=== PATIENT | female | born 1960 | race Caucasian/White ===

== ENCOUNTER 2025-03-07 13:35 | Observation (INO) | payer OTHER, SELFPAY ==
[2025-03-07] VITALS (13 sets, daily range): BP systolic 129–186; BP diastolic 77–101; PULSE 72–115; RESP 13–22; TEMP 36.3–36.8; O2SAT 98–100; BMI 21.3; BMI 20.6
--- NOTE | 2025-03-07 13:46 | CT_ITS ---
PROCEDURE: STROKE CTA HEAD AND NECK W/CON 03/07/2025 REASON FOR EXAM: NEURO DEFICIT, ACUTE, STROKE SUSPECTED TECHNIQUE: Procedure Code: CHARLINE Modality: CT Procedure: STROKE CTA HEAD AND NECK W/CON Multiplanar Sagittal and Coronal images were obtained. 3D post processing was performed CONTRAST: Isovue 370 VOLUME: 100 mL One or more dose reduction techniques were used (e.g., Automated exposure control, adjustment of the mA and/or kV according to patient size, use of iterative reconstruction technique). RADIATION DOSE SUMMARY: CTDlvol: 32.23 mGy DLP: 562.9 mGycm COMPARISON: None FINDINGS: Aortic Arch: No aneurysm or dissection Brachiocephalic and Subclavians: Unremarkable RIGHT Carotid: Right CCA: Unremarkable. Right ICA: Unremarkable. Maximum stenosis (NASCET): 0 % Right ECA: Unremarkable. LEFT Carotid: Left CCA: Unremarkable. Left ICA: Unremarkable. Maximum stenosis (NASCET): 0 % Left ECA: Unremarkable. Vertebrals: Codominant. Arise from the subclavians. Both vertebrals form the basilar. RIGHT Vertebral: Unremarkable. LEFT Vertebral: Unremarkable. 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 Anterior cerebral arteries: Unremarkable: Middle cerebral arteries: Unremarkable. Basilar artery: Unremarkable. Posterior cerebral arteries: Unremarkable. Other major branches of the posterior circulation: Unremarkable. Major venous structures: Unremarkable. Other findings: No suspicious enhancing lesion, airway narrowing or deviation. Bony structures show degenerative change, bilateral maxillary sinusitis, thyroid gland is unremarkable. 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 No aneurysm or vascular malformation Patent vertebral arteries Reading Location: [id number]
--- NOTE | 2025-03-07 13:46 | RAD_ITS ---
PROCEDURE: CHEST 1 VIEW 03/07/2025 REASON FOR EXAM: NEURO DEFICIT, ACUTE, STROKE SUSPECTED TECHNIQUE: Frontal view of the chest. COMPARISON: None. FINDINGS: LUNGS AND PLEURA: No focal airspace consolidation. No pleural effusion or pneumothorax. HEART AND MEDIASTINUM: The heart size and mediastinal contours are normal. BONES: No acute osseous abnormality. RAD/Chest 1 View IMPRESSION: No Acute Findings. Reading Location: [id number]
--- NOTE | 2025-03-07 13:46 | CT_ITS ---
PROCEDURE: STROKE BRAIN/HEAD WITHOUT CONT 03/07/2025 REASON FOR EXAM: NEURO DEFICIT, ACUTE, STROKE SUSPECTED TECHNIQUE: Procedure Code: CTBR.ST Modality: CT Procedure: STROKE BRAIN/HEAD WITHOUT CONT Coronal and Sagittal reconstruction series were provided. One or more dose reduction techniques were used (e.g., Automated exposure control, adjustment of the mA and/or kV according to patient size, use of iterative reconstruction technique. RADIATION DOSE SUMMARY: CTDlvol: 45 mGy DLP: 745.5 mGycm COMPARISON: None FINDINGS: Cerebrum: Mild loss ofcerebral volume. Negative for mass the frontal, parietal, temporal and occipital lobes otherwisenegative. White matter: Negative for periventricular white matter changes. Cerebellum: Negative. Negative for mass. Negative for acute infarction. CSF pathways and ventricles: Negative. Negative for ventricular dilatation or obstruction. Basal ganglia and thalami: Negative. No acute infarctions. Brainstem: Midbrain, jose and medulla negative. Calvarium: Negative. Negative for fractures. Orbital structures: Globes negative. Extraocular muscles negative. Paranasal sinuses: Air-fluid levels in the maxillary sinuses. Remainder of the sinuses negative. Vascular structures: Negative for calcifications of the distal intracranial internal carotid arteries. Soft tissues: Negative. Other: : Negative for acute intracranial hemorrhage. Negative for acute infarction. Remainder of exam negative. CT/STROKE Brain/Head without Cont IMPRESSION: Negative for acute intracranial pathology. Maxillary sinusitis. Report called to referring clinician at the time of the exam. Reading Location: [id number]
--- NOTE | 2025-03-07 13:46 | EKG12_ITS ---
Test Reason : STROKE Blood Pressure : */* mmHG Vent. Rate : 92 BPM Atrial Rate : 92 BPM P-R Int : 148 ms QRS Dur : 64 ms QT Int : 350 ms P-R-T Axes : 80 76 61 degrees QTcB Int : 432 ms Sinus rhythm with marked sinus arrhythmia Otherwise normal ECG Confirmed by Joao Hyman ([id number]), electronic news gathering editor BRENT ROBERTS ([id number]) on 03/08/2025 1:25:59 PM Referred By: Confirmed By: Joao Hyman
--- NOTE | 2025-03-07 13:47 | ED.VIS.STROK ---
HPI History of Present Illness Chief Complaint: Weakness Informant: patient Onset/Context/Timing Onset: Today Context: Sudden Onset Timing: Continuous Quality and Location: Positive for Difficulty with Ambulation Onset: Approximately 8 AM Worsened by: Nothing Relieved by: Nothing Associated Symptoms Associated Symptoms: Positive for Headache; Negative for Nausea, Vomiting or Chest Pain Narrative Narrative: Patient presents with headache, tinnitus, and dizziness. Patient states the headache is mainly over the right side of her head. Patient states the headache began when she woke up this morning. Patient states that after that she started noticing some ringing and buzzing in her right ear. Patient went to [facility]. While she was at [facility], she had feeling where she was going to fall and was off balance. Patient denies any paresthesias or weakness. Patient denies any difficulty breathing or difficulty swallowing. Patient denies any visual changes. [facility] Medical History Fatty tumor Home Medications ?Medication ?Instructions ?Recorded ?Last Taken ?Type alprazolam 0.5 mg tablet 0.25 mg PO QHS PRN sleep 03/07/25 Unknown History ascorbic acid (vitamin C) 1,000 mg 1 g PO DAILY 03/07/25 Unknown History tablet (C-1000) bisacodyl 5 mg tablet,delayed 5 mg PO PRN CONSTIPATION 03/07/25 Unknown History release (Dulcolax (bisacodyl)) capsicum (cayenne) 450 mg capsule 450 mg PO DAILY 03/07/25 Unknown History coenzyme Q10 100 mg capsule (Co 100 mg PO DAILY 03/07/25 Unknown History Q-10) fluoxetine 20 mg capsule 20 mg PO QODAY 03/07/25 03/07/25 History hawthorn 500 mg capsule (hawthorn 500 mg PO DAILY 03/07/25 Unknown History rasheed) Allergy/AdvReac Type Severity Reaction Status Date / Time No Known Allergies Allergy Verified 03/07/25 13:42 Social History Smoking Status: Never smoker ROS ROS ED Constitutional Constitutional ED: Denies chills or fever(s) Eyes Eyes: Denies blurry vision or change in vision ENT ENT ED: Denies rhinorrhea or sore throat Cardiovascular Cardiovascular: Denies chest pain or palpitations Respiratory/Chest Respiratory/Chest: Denies cough or dyspnea Gastrointestinal Gastrointestinal: Denies nausea or vomiting Genitourinary Genitourinary ED: Denies dysuria or hematuria Musculoskeletal Musculoskeletal: Denies back pain or neck pain Integumentary Denies abscess or rash Neurologic Neurologic: Reports headache(s); Denies weakness Allergic/Immunologic Allergic/Immunologic ED: Denies mouth swelling or urticaria EXAM Physical Exam Const Vital Signs: 03/07/25 13:36 03/07/25 13:45 03/07/25 13:46 Temperature 97.8 F Temperature Source Oral Pulse Rate 103 H 82 86 Respiratory Rate 22 H 15 14 Respiratory Effort Respiratory Pattern Blood Pressure 151/95 H 147/97 H 147/97 H Blood Pressure Mean 113 113 113 Pulse Ox 99 100 98 Oxygen Delivery Method Room Air Room Air Room Air 03/07/25 13:49 03/07/25 13:51 03/07/25 14:00 Temperature Temperature Source Pulse Rate 115 H Respiratory Rate 15 Respiratory Effort Normal Respiratory Pattern Normal Blood Pressure 160/99 H Blood Pressure Mean 119 Pulse Ox 100 Oxygen Delivery Method Room Air Room Air 03/07/25 14:30 03/07/25 14:45 03/07/25 15:00 Temperature 98.2 F Temperature Source Pulse Rate 89 83 79 Respiratory Rate 13 14 14 Respiratory Effort Respiratory Pattern Blood Pressure 146/87 H 162/85 H 154/84 H Blood Pressure Mean 106 110 107 Pulse Ox 100 98 98 Oxygen Delivery Method Room Air Room Air 03/07/25 15:30 03/07/25 16:00 Temperature Temperature Source Pulse Rate 83 72 Respiratory Rate 14 17 Respiratory Effort Respiratory Pattern Blood Pressure 162/89 H 148/86 H Blood Pressure Mean 113 106 Pulse Ox 99 99 Oxygen Delivery Method Room Air Room Air Positive well nourished and well developed General Appearance ED: well developed and NAD HEENT Reports moist mucous membranes Eyes PERRL and EOMs intact bilaterally Eyes Narrative: There is no tenderness over the temporal artery. Neck supple Resp normal respiratory effort and clear to auscultation bilaterally Cardio Rate: regular rate Rhythm: regular rhythm GI soft to palpation, non-tender and non-distended Neuro oriented x3, CN's II-XII intact bilaterally and no sensory deficits noted Neuro Narrative: Finger-nose and jbkm-jv-nifl were intact. Amirah Coma Scale: document GCS findings Spontaneous Obeys Commands Oriented 15 Sensorium / Orientation: alert Speech: speech normal Motor Exam: strength 5/5 throughout Psych mental status grossly normal MDM MDM MDM Narrative Medical decision making narrative: Differential diagnosis includes stroke, labyrinthitis, vertigo, electrolyte abnormality, dehydration, intracranial bleeding, and anxiety. CT scan of the brain will be obtained to assess for stroke and intracranial bleeding. CTA of the head and neck will be obtained to assess for vertebral stenosis, carotid stenosis, and large vessel occlusion. Chest x-ray will be obtained to assess for pneumonia and bronchitis. CBC will be obtained to assess for leukocytosis and anemia. Basic metabolic profile will be obtained to assess for electrolyte abnormality renal function. High-sensitivity troponin will be obtained to assess for cardiac ischemia. 2-hour repeat high-sensitivity troponin will be obtained to assess for ongoing cardiac ischemia. PT with INR and PTT will be obtained to assess for coagulopathy. Lab Data Attestation: I reviewed the patient's lab results. Lab results narrative: CBC was reviewed and was within normal limits. Basic metabolic profile was reviewed and was within normal limits. PT with INR and PTT were reviewed and were within normal limits. Initial high-sensitivity troponin was reviewed and was less than 6. Labs: Laboratory Results - last 24 hr 03/07/25 03/07/25 03/07/25 13:42 13:51 15:42 WBC 9.0 RBC 4.44 Hgb 13.6 Hct 42.1 MCV 94.8 MCH 30.6 MCHC 32.3 RDW Std Deviation 48.9 H RDW Coeff of Delfin 14.0 Plt Count 392 MPV 8.8 Immature Gran % (Auto) 0.400 Neut % (Auto) 63.5 Lymph % (Auto) 20.0 Caldwell % (Auto) 10.7 H Eos % (Auto) 4.4 Baso % (Auto) 1.0 Absolute Neuts (auto) 5.7 Absolute Lymphs (auto) 1.81 Nucleated RBC % 0 ESR 15 PT 13.0 INR 1.0 APTT 27.4 Sodium 140 Potassium 3.8 Chloride 103 Carbon Dioxide 25.1 Anion Gap 12 BUN 9 Creatinine 0.87 Estim Creat Clear Calc 49.30 L Est GFR (MDRD) Non-Af 75 BUN/Creatinine Ratio 10.0 Glucose 101 H Calcium 9.6 Troponin T High Sens < 6 Troponin T Hi Sens 2 Hr < 6 C-React Prot Ext Range < 3.00 Radiography Chest X-Ray - ED: 1 View, Read by ED Physician, Read by Radiologist and No Acute Disease Diagnostic Testing: Clinical Impression(s) from Imaging Studies Brain CT 03/07/25 13:46 IMPRESSION: Negative for acute intracranial pathology. Maxillary sinusitis. Report called to referring clinician at the time of the exam. 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 No aneurysm or vascular malformation Patent vertebral arteries Reading Location: [id number] CT scan of the brain was obtained. There is no acute intracranial abnormality. This was interpreted by the radiologist and was also independently reviewed by myself. CTA of the head and neck was obtained. There is no evidence of large vessel occlusion. There is no evidence of carotid stenosis or vertebral artery stenosis. This was interpreted by the radiologist and was also independently reviewed by myself. Portable 1 view chest x-ray was obtained. On my independent interpretation, lung min are clear. There is normal cardiac silhouette. Bony thorax is normal. There is no acute process noted. Radiologist also interpreted the x-ray and agrees. EKG Initial EKG: Attestation: I personally reviewed and interpreted this EKG as follows: Interpretation: Sinus Rhythm (92) and No Acute Injury Pattern Comments: EKG was obtained. On my independent interpretation, it showed a normal sinus rhythm with a rate of 92. TN interval, QRS interval, and QTc intervals were all normal. [place]iqua was normal. There are no acute ST or T wave changes. Prior EKG tracings: not available for review Prior: No Prior Management Discussion w/another healthcare provider: Hospitalist, Chief Green Officer and Radiologist Treatment and Re-Evaluation Narrative: Patient was advised of her findings. Patient is complaining of nausea and dizziness on reevaluation. Patient was given dose of Zofran and Valium. Patient was evaluated by stroke neurologist, Dr. Marcelo. She recommended admission for further presyncope workup. Case was discussed with the hospitalist. He will admit the patient to his service. Patient and family understood and were agreeable with the plan. All questions were answered. Discharge Plan Dx/Rx/DC Orders Clinical Impression: Dizziness, Pre-syncope, Tinnitus Disposition Disposition: Acute Care Hospital [facility] NIHSS NIHSS 1a. Level of Consciousness: 0 - Alert; keenly responsive 1b. LOC Questions: 0 - Answers BOTH questions correctly 1c. LOC Commands: 0 - Performs BOTH tasks correctly 2. Best Gaze: 0 - Normal 3. Visual: 0 - No visual loss 4. Facial Palsy: 0 - Normal symmetrical movements 5a. Left Arm: 0 - No drift; arm holds 90 (or 45) degrees for full 10 seconds 5b. Right Arm: 0 - No drift; arm holds 90 (or 45) degrees for full 10 seconds 6a. Left Le - No drift; leg holds 30-degree position for full 5 seconds 6b. Right Le - No drift; leg holds 30-degree position for full 5 seconds 7. Limb Ataxia: 0 - Absent 8. Sensory: 0 - Normal; no sensory loss 9. Best Language: 0 - No aphasia; normal 10. Dysarthria: 0 - Normal Total: 0 Stroke Questions Stroke Team Activated: Yes Reviewed Inclusion/Exclusion criteria: Yes IV Thrombolytic Administered: No No contraindications from thrombolytic administration: No
--- OUTSIDE RECORDS SUMMARY | 2025-03-07 13:51 | XMS RPT_ITS | CCD ---
Author Organization [facility] Inform ion Partnership [facility] Care Team Providers Care Supervisor Line Department Name Role Phone Iveth West MD Unavailable [phone] Medications Completed/Discontinued Medications Medication Drug Class(es) Dates Sig (Normalized) Sig (Original) FLUoxetine 20 mg oral tablet (1 source) Serotonin Reuptake Inhibitor Start: 12-10-2016 take 1 tablet by mouth once daily FLUOXETINE HCL (PMDD) 20 MG TABS One tablet by mouth daily FLUOXETINE HCL (PMDD) 62914451499 Rabia Weiner OMEGA-3 FATTY ACIDS (1 source) Start: 12-10-2016 take 1 tablet by mouth once daily [facility] NATURAL FISH OIL 1000 MG CAPS One tablet by mouth daily OMEGA-3 FATTY ACIDS [id number] Rabia Weiner Problems Active Problems Problem Classification Problem Date Documented Date Episodic/Chronic Anxiety disorders (1 source) Mixed anxiety and depressive disorder; Translations: [Other specified anxiety disorders] Onset: 12-10-2016 12-10-2016 Chronic Esophageal disorders (1 source) Gastroesophageal reflux disease; Translations: [Gastro-esophageal reflux disease without esophagitis] Onset: 12-10-2016 12-10-2016 Chronic Past or Other Problems Problem Classification Problem Date Documented Da te Episodic/Chronic Heart valve disorders (1 source) Heart murmur; Translations: [Cardiac murmur, unspecified] Onset: 12-10-2016 12-10-2016 Episodic Neoplasms of unspecified nature or uncertain behavior (1 source) Neoplastic disease of uncertain behavior; Translations: [Neoplasm of uncertain behavior, unspecified] Onset: 12-10-2016 12-10-2016 Episodic Spondylosis; intervertebral disc disorders; other back problems (1 source) Backache; Translations: [Dorsalgia, unspecified] Onset: 12-10-2016 12-10-2016 Episodic Results Test Name Value Interpretation Reference Range Facility Final Surgical Pathology Rep phill 09-18-2023 Final Surgical Pathology Report . Pathology Reports Accession: Collected Date/Time: Received Date/Time: Pathologist: [id number] 09/16/2023 11:34 EDT 09/17/2023 14:18 EDT AMINAH MCCLENDON MD Final Surgical Pathology Report DIAGNOSIS: RIGHT PROXIMAL LATERAL THIGH MASS: COMMENT: [facility] - [id number] CLINICAL INFORMATION: RIGHT PROXIMAL LATERAL THIGH MASS SPECIMEN: A RIGHT PROXIMAL LATERAL THIGH MASS GROSS DESCRIPTION: All parts labelled with patient name and [id number] Received in formalin labelled right proximal lateral thigh mass Is a yellow lobulated portion of adipose tissue weighing 73 g and measuring 8 x 5.6 x 4.1 cm. Outer surface of the specimen is inked black. Sectioning reveals yellow, glistening, homogeneous cut surfaces with no areas of hemorrhage or necrosis identified. RS-5 Kailee Villatoro, Pathologists' Registered Nurse Nursery (ASCP) Dictated by AKILEE VILLATORO MICROSCOPIC DESCRIPTION: The microscopic examination is performed, except in the case of Gross Only. Electronically Signed by Pathology Report verified by [facility] AMINAH MCCLENDON Sign out Date: 09/18/2023 13:21 Performing Lab: [facility], [address] [place] [address] Pathology Dept Disclaimer If ancillary studies were utilized, the following Laboratory Developed Test (LDT) disclaimer will apply: Under CLIA requirements, [facility] is qualified to perform high complexity testing. For all ancillary stains, positive and negative controls stain appropriately. Performance characteristics of immunohistochemical and chromogenic in-situ hybridization tests have been determined by [facility]. These tests are used for clinical purposes, They should not be regarded as investigational or for research. Normal [facility] ([place]) Office Visit: Right thigh wilson bcutaneous neoplasmon 12-10-2016 Fall risk assessment No [facility] Work Phone: Protein mass conc Done [facility] Work Phone: Tobacco smoking status NHIS Never [facility] Work Phone: Tobacco smoking status NHIS Never smoker [facility] Work Phone: Vital Signs Date Time Vital Sign Value Performing Clinician Facility 12-10-2016 14:36-0400 BMI (Body Mass Index) 22.56 kg/m2 Iveth West MD [facility] Work Phone: 12-10-2016 14:36-0400 Body Temperature 98.1 [degF] Iveth West MD [facility] Work Phone: 12-10-2016 14:36-0400 BP Diastolic 85 mm[Hg] Iveth West MD [facility] Work Phone: 12-10-2016 14:36-0400 BP Systolic 138 mm[Hg] Iveth West MD [facility] Work Phone: 12-10-2016 14:36-0400 Height 154.94 cm Iveth West MD [facility] Work Phone: 12-10-2016 14:36-0400 Pulse (Heart Rate) 75 /min Iveth West MD [facility] Work Phone: 12-10-2016 14:36-0400 Pulse Oximetry 97 % Iveth West MD [facility] Work Phone: 12-10-2016 14:36-0400 Respiratory Rate 20 /min Iveth West MD [facility] Work Phone: 12-10-2016 14:36-0400 Weight 54.16 kg Iveth West MD [facility] Work Phone: Plan of Treatment Date Care Activity Detail Author Start: 12-10-2016 End: 12-11-2016 Follow-up visit Follow Up as needed [facility] Work Phone: Start: 12-10-2016 End: 12-11-2016 Office outpatient new 30 minutes [id number] Vst-New Level III [facility] Work Phone: Summary Purpose Family History No Family History Records Found Advance Directives No Advanced Directives Records Found Additional Source Comments INFORMATION SOURCE (unrecogn ized section and content) DATE CREATED AUTHOR 09/20/2023 [facility] ([place]) FOR RECORDS PERTAINING TO PATIENTS WHO ARE OR HAVE BEEN ENROLLED IN A CHEMICAL DEPENDENCY/SUBSTANCEABUSE PROGRAM, SOME INFORMATION MAY BE OMITTED. This clinical summary was aggregated from multiple sources. Caution should be exercised in using it in the provision of clinical care. This summary normalizes information from multiple sources, and as a consequence, information in this document may materially change the coding, format and clinical context of patient data. In addition, data may be omitted in some cases. CLINICAL DECISIONS SHOULD BE BASED ON THE PRIMARY CLINICAL RECORDS. [facility] [employer] [facility]. provides no warranty or guarantee of the accuracy or completeness of information in this document.
[2025-03-07 13:59] LABS: Hematocrit 42.1 % (37-47); Hemoglobin 13.6 g/dL (12.0-15.0); Immature Granulocytes Count 0.040 X10^3/uL (0.0-0.0); Mean Corp Hgb Conc 32.3 g/dL (32-36); Mean Corpuscular Volume 94.8 fL (81-99); Mean Platelet Vol. 8.8 fl (6.2-12.0); NRBC Flagged by Analyzer 0 % (0-5); Platelet Count 392 K/mm3 (150-450); RBC Distribution Width CV 14.0 % (11.6-14.6); RBC Distribution Width SD 48.9 fl (35.1-43.9); Red Blood Count 4.44 M/mm3 (4.2-5.4); White Blood Count 9.0 K/mm3 (4.4-11.0)
--- NOTE | 2025-03-07 14:05 | ED.RN ---
1356: PT. RETURNED TO ROOM FOLLOWING CT. [facility] CALLED 1406: [facility]
[2025-03-07 14:06] LABS: Partial Thromboplast Time 27.4 Seconds (24.1-36.2); Prothrombin Time (Protime)PT. 13.0 SECONDS (11.7-14.9)
[2025-03-07 14:17] LABS: Anion Gap 12 (5-15); BUN 9 mg/dL (4-19); BUN/Creat Ratio 10.0 RATIO (10-20); Calcium,Total 9.6 mg/dL (7.6-11.0); Carbon Dioxide 25.1 mmol/L (21.0-32.0); Chloride 103 mmol/L (98-108); Estimated Creatinine Clearance 49.30 ml/min (50-250); Glucose 101 mg/dL (70-99); Potassium 3.8 mmol/L (3.3-5.1); Troponin T High Sensitivity < 6 ng/L (<=14)
--- NOTE | 2025-03-07 14:56 | PCM.HP.STD ---
[facility] - General General Date of Admission: 03/07/25 Date of Service: 03/07/25 Chief Complaint: Dizziness, tinnitus and difficulty with ambulation HPI Narrative EVA HENDERSON, is a 65 F who presented to [facility] ED on 03/07/2025 with dizziness, tinnitus and difficulty with ambulation. Patient lives at home with her , has good functional status at baseline. She was in her normal state of health yesterday evening. This morning upon waking up she had a right-sided headache with tinnitus and some dizziness. When she tried to walk she had difficulty keeping her balance. She went to [facility] and while there she continued to feel off balance. She also noted some difficulty hearing out of the right ear. For these reasons, she came to the ED for further evaluation. In the ED she was hypertensive to the 150s to low 160s systolic but otherwise in normal sinus rhythm and stable on room air at rest. CBC and BMP were unremarkable. CT head and CTA head/neck were unremarkable. Chest x-ray unremarkable. [facility] teleneurology evaluated her and noted that her NIHSS score was 0, and given her normal imaging that she did not require an MRI brain further evaluation but should be admitted under observation for presyncopal symptoms. Hospitalist was then contacted for admission. I saw the patient at bedside in the ED, is present. Patient was mildly fatigued appearing but otherwise laying back comfortably in bed, conversing normally, in no acute distress. She continues to report headache with right-sided tinnitus and hearing loss noted. Does not feel much improved from this morning. Patient notes that she has had tinnitus and issues with hearing loss with the left ear in the past few years, but has not had vertigo symptoms like this before. Notes that she has been told her blood pressure has been high in the past but she has never been on antihypertensive therapy. She denies any recent URI symptoms. No other acute concerns currently. Will be admitted for further management. [facility] Medical History Fatty tumor Home Medications ?Medication ?Instructions ?Recorded ?Last Taken ?Type alprazolam 0.5 mg tablet 0.25 mg PO QHS PRN sleep 03/07/25 Unknown History ascorbic acid (vitamin C) 1,000 mg 1 g PO DAILY 03/07/25 Unknown History tablet (C-1000) bisacodyl 5 mg tablet,delayed 5 mg PO PRN CONSTIPATION 03/07/25 Unknown History release (Dulcolax (bisacodyl)) capsicum (cayenne) 450 mg capsule 450 mg PO DAILY 03/07/25 Unknown History coenzyme Q10 100 mg capsule (Co 100 mg PO DAILY 03/07/25 Unknown History Q-10) fluoxetine 20 mg capsule 20 mg PO QODAY 03/07/25 03/07/25 History hawthorn 500 mg capsule (hawthorn 500 mg PO DAILY 03/07/25 Unknown History rasheed) Allergy/AdvReac Type Severity Reaction Status Date / Time No Known Allergies Allergy Verified 03/07/25 13:42 Social History Smoking Status: Never smoker ROS Constitutional Constitutional: Denies chills, fatigue, fever(s) or weakness Eyes Eyes: Denies change in vision ENT HEENT: Reports abnormal hearing, headache(s) and hearing loss; Denies ear pain, nasal congestion, nasal discharge, sinus pressure or sore throat Cardiovascular Cardiovascular: Denies chest pain or dyspnea on exertion Respiratory/Chest Respiratory/Chest: Denies cough, productive cough, shortness of breath at rest or wheezing Gastrointestinal Gastrointestinal: Denies abdominal pain Genitourinary Genitourinary: Denies dysuria Musculoskeletal Musculoskeletal: Denies arthralgias or myalgias Neurologic Neurologic: Reports disequilibrium, dizziness and headache(s); Denies focal weakness, numbness or tingling Vital Signs Vital Signs Vital Signs: 03/07/25 13:36 03/07/25 13:45 03/07/25 13:46 Temperature 97.8 F Temperature Source Oral Pulse Rate 103 H 82 86 Respiratory Rate 22 H 15 14 Respiratory Effort Respiratory Pattern Blood Pressure 151/95 H 147/97 H 147/97 H Blood Pressure Mean 113 113 113 Pulse Ox 99 100 98 Oxygen Delivery Method Room Air Room Air Room Air 03/07/25 13:49 03/07/25 13:51 03/07/25 14:00 Temperature Temperature Source Pulse Rate 115 H Respiratory Rate 15 Respiratory Effort Normal Respiratory Pattern Normal Blood Pressure 160/99 H Blood Pressure Mean 119 Pulse Ox 100 Oxygen Delivery Method Room Air Room Air 03/07/25 14:30 03/07/25 14:45 Temperature 98.2 F Temperature Source Pulse Rate 89 83 Respiratory Rate 13 14 Respiratory Effort Respiratory Pattern Blood Pressure 146/87 H 162/85 H Blood Pressure Mean 106 110 Pulse Ox 100 98 Oxygen Delivery Method Room Air Weight Weight: 51.2 kg Body Mass Index (BMI) 21.3 Physical Exam Const alert, oriented x3, no apparent distress, average body habitus, healthy appearing and well nourished Constitutional Narrative: Upper middle-aged female, mildly fatigued appearing but otherwise sitting back comfortably in bed, conversing normally, in no acute distress. General Appearance: cooperative, comfortable, well kempt and well developed HEENT normocephalic, head/scalp atraumatic, nasal mucous membranes and turbinates normal and moist oral mucous membranes Eyes PERRL, EOMs intact bilaterally and conjunctivae normal Neck full ROM Chest inspection of chest normal Resp normal respiratory effort, normal air movement, no use of accessory muscles and clear to auscultation bilaterally Cardio regular rate, regular rhythm, no murmurs and peripheral pulses 2+ throughout GI normal to inspection, nondistended, normoactive bowel sounds, soft to palpation, non-tender and non-distended Back/Spine normal ROM Extremity normal to inspection, full ROM and no pedal edema Skin no rashes or lesions noted Neuro oriented x3, CN's II-XII intact bilaterally, moves all extremities and no focal motor deficits Coordination / Balance: [id number] test normal Speech: speech normal Motor Exam: strength 5/5 throughout Psych mental status grossly normal Results Lab / Micro Data 03/07/25 13:42 03/07/25 13:42 Labs: Laboratory Results - last 24 hr 03/07/25 13:42: WBC 9.0, RBC 4.44, Hgb 13.6, Hct 42.1, MCV 94.8, MCH 30.6, MCHC 32.3, RDW Std Deviation 48.9 H, RDW Coeff of Delfin 14.0, Plt Count 392, MPV 8.8, Immature Gran % (Auto) 0.400, Neut % (Auto) 63.5, Lymph % (Auto) 20.0, Mccreary % (Auto) 10.7 H, Eos % (Auto) 4.4, Baso % (Auto) 1.0, Absolute Neuts (auto) 5.7, Absolute Lymphs (auto) 1.81, Nucleated RBC % 0, PT 13.0, INR 1.0, APTT 27.4, Sodium 140, Potassium 3.8, Chloride 103, Carbon Dioxide 25.1, Anion Gap 12, BUN 9, Creatinine 0.87, Estim Creat Clear Calc 49.30 L, Est GFR (MDRD) Non-Af 75, BUN/Creatinine Ratio 10.0, Glucose 101 H, Calcium 9.6, Troponin T High Sens < 6 Imaging Radiology Impression Brain CT 03/07/25 13:46 IMPRESSION: Negative for acute intracranial pathology. Maxillary sinusitis. Report called to referring clinician at the time of the exam. Reading Location: [facility] Assessment & Plan Assessment/Plan (1) Dizziness: (2) Tinnitus: PLAN: Plan Patient is a 65-year-old female who presented [facility] ED on 03/07/2025 with dizziness with tinnitus and difficulty with ambulation. 1. Dizziness and difficulty with ambulation, tinnitus and reported right sided hearing loss ? Admit under observation status to PCU. PT/OT/case management consulted. Symptoms seem most consistent with M?ni?re's disease. CT brain and CT head/neck negative and NIHSS score of 0, so teleneurology noted that MRI brain could be deferred due to very low risk of stroke. Patient does report issues with left sided tinnitus and hearing loss in the past but no history of vertigo or difficulty with ambulation. Recommend lifestyle and dietary modifications including low-sodium diet (max 2 to 3 g daily) and limited caffeine intake. Given elevated BP readings as below, will initiate hydrochlorothiazide 25 mg daily. Monitor symptoms. Appreciate therapy recommendations. 2. Elevated BP readings ? Patient hypertensive to the 150s to 160s systolic in the ED. Patient reports history of elevated BP readings but has never been on antihypertensive therapy. Will initiate hydrochlorothiazide 25 mg daily as above. Monitor BP. 3. Anxiety/depression/insomnia ? Stable. Continue home fluoxetine and alprazolam at night as needed. DVT prophylaxis: Lovenox CODE STATUS: Full code, verified Expected disposition: Home, 1 to 2 days Total clinical time spent by myself addressing the patient's medical issues, reviewing all the data, and collaborating with patient's care team: 63 minutes. Charges/Coding Visit Charges Inpatient E&M: 39146 Init Hosp L2
--- NOTE | 2025-03-07 14:58 | CM.ED ---
Social Work Date of referral: 03/07/25 Reason for referral: Stroke alert Medical Delivery Driver responded to stroke alert and provided support to patient's as patient was taken away for treatment. (13:50) Medical Delivery Driver met with patient and her again to check on them and see how they are doing and if they needed anything which both denied. (14:18) Medical Delivery Driver met with patient again to check on them and see how they are doing and if they need anything which again, they denied. Medical Delivery Driver asked patient's to bring in a copy of patient's advanced care directives which he agreed to do. Patient's primary care physician retired so now patient see's MOLD STRIPPER Rocio Tran. (14:58) Jennifer Cronin, PRODUCTION CELL LEADER, MANAGEMENT ASSOCIATE
--- NOTE | 2025-03-07 15:07 | ECHOD_ITS ---
Reason For Study Reason For Study: syncope Procedure This was a 2D Doppler, Color Flow transthoracic echocardiogram. Exam performed portable in patient room. Left Ventricle Normal size and thickness. The left ventricular ejection fraction is 65 %. Right Ventricle Normal right ventricle. Atria The left and right atria are normal. Mitral Valve Trivial mitral valve insufficiency. Tricuspid Valve Normal pulmonary artery pressure. Moderate (2+) tricuspid valve insufficiency. Aortic Valve Trisinus/trileaflet aortic valve. Pulmonic Valve The pulmonic valve is not well visualized. Great Vessels The aortic root is not well visualized. Pericardium/Pleural No pericardial effusion. MMode/2D Measurements & Calculations LVIDd: 3.1 cm IVSd: 0.98 cm LAV(MOD-sp4): 18.3 ml LVIDs: 2.4 cm LVPWd: 0.94 cm RVDd: 2.5 cm FS: 23.1 % LVAd ap4: 15.9 cm2 SV(MOD-sp4): 20.7 ml SV(sp4-el): 21.2 ml LVLd ap4: 6.1 cm SI(MOD-sp4): 14.0 ml/m2 EDV(MOD-sp4): 34.8 ml EDV(sp4-el): 35.1 ml LVAs ap4: 8.5 cm2 LVLs ap4: 4.5 cm ESV(MOD-sp4): 14.1 ml ESV(sp4-el): 13.9 ml EF(MOD-sp4): 59.6 % EF(sp4-el): 60.5 % LA A4 area: 10.2 cm2 LA dimension(2D): 2.6 cm RA A4 area: 8.0 cm2 Time Measurements MV dec time: 0.20 sec Doppler Measurements & Calculations MV E max nitesh: 68.9 cm/sec Lat Peak E' Nitesh: 11.0 cm/sec Med Peak E' Nitesh: 7.8 cm/sec MV A max nitesh: 90.1 cm/sec E/E' lat: 6.2 E/E' med: 8.8 MV E/A: 0.76 MV V2 max: 91.2 cm/sec Ao V2 max: 98.1 cm/sec MV max P.3 mmHg MV dec slope: 356.9 cm/sec2 Ao max P.9 mmHg MV V2 mean: 57.2 cm/sec Ao V2 mean: 76.2 cm/sec MV mean P.5 mmHg Ao mean P.5 mmHg MV V2 VTI: 27.0 cm Ao V2 VTI: 17.1 cm AV (velocity ratio): 1.2 LV V1 max: 101.4 cm/sec TR max nitesh: 241.8 cm/sec LV V1 max P.1 mmHg TR max P.4 mmHg LV V1 mean P.9 mmHg LV V1 mean: 63.7 cm/sec LV V1 VTI: 20.7 cm ECHO/Echo Complete Interpretation Summary The left ventricular ejection fraction is 65 %. Moderate (2+) tricuspid valve insufficiency. Ordering Physician: Thierno Smith Referring Physician: Felicia Tran Performed By: Ciera Nieto RCS
--- NOTE | 2025-03-07 15:45 | ED.RN ---
RADIOLOGY CALLED FOR DELAY IN CT AND X-RAY RESULTS. RESPONSE WE'VE ALREADY CALLED THERE IS ONLY ONE RADIOLOGIST ON. IT JUST GOT PICKED UP
[2025-03-07 16:09] LABS: Troponin T High Sens 2 HR < 6 ng/L (<=14)
[2025-03-07 16:14] LABS: CRP < 3.00 mg/L (0.0-3.0)
--- OUTSIDE RECORDS SUMMARY | 2025-03-07 16:41 | XMS RPT_ITS | CCD ---
Author Organization [facility] Inform ion Partnership [facility] Care Team Providers Care Consulting Engineer Name Role Phone Iveth West MD Unavailable [phone] Medications Completed/Discontinued Medications Medication Drug Class(es) Dates Sig (Normalized) Sig (Original) FLUoxetine 20 mg oral tablet (1 source) Serotonin Reuptake Inhibitor Start: 12-10-2016 take 1 tablet by mouth once daily FLUOXETINE HCL (PMDD) 20 MG TABS One tablet by mouth daily FLUOXETINE HCL (PMDD) 85696684114 Rabia Weiner OMEGA-3 FATTY ACIDS (1 source) Start: 12-10-2016 take 1 tablet by mouth once daily [facility] NATURAL FISH OIL 1000 MG CAPS One tablet by mouth daily OMEGA-3 FATTY ACIDS [id number] Rabia Weiner Problems Active Problems Problem Classification [...] Reports Accession: Collected Date/Time: Received Date/Time: Pathologist: [id number] 09/16/2023 11:34 EDT 09/17/2023 14:18 EDT AMINAH MCCLENDON MD Final Surgical Pathology Report DIAGNOSIS: RIGHT PROXIMAL LATERAL THIGH MASS: COMMENT: [facility] - [id number] CLINICAL INFORMATION: RIGHT PROXIMAL LATERAL THIGH MASS SPECIMEN: A RIGHT PROXIMAL LATERAL THIGH MASS GROSS DESCRIPTION: All parts labelled with patient name and [id number] Received in formalin labelled right proximal lateral thigh mass Is a yellow lobulated portion of adipose tissue weighing 73 g and measuring 8 x 5.6 x 4.1 cm. Outer surface of the specimen is inked black. Sectioning reveals yellow, glistening, homogeneous cut surfaces with no areas of hemorrhage or necrosis identified. RS-5 Kailee Villatoro, Pathologists' Development Mechanic (ASCP) Dictated by KAILEE VILLATORO MICROSCOPIC DESCRIPTION: The microscopic examination is performed, except in the case of Gross Only. Electronically Signed by Pathology Report verified by [facility] AMINAH MCCLENDON Sign out Date: 09/18/2023 13:21 Performing Lab: [facility], [address] [place] [address] Pathology Dept Disclaimer If ancillary studies were utilized, the following Laboratory Developed Test (LDT) disclaimer will apply: Under CLIA requirements, [facility] is qualified to perform high complexity testing. For all ancillary stains, positive and negative controls stain appropriately. Performance characteristics of immunohistochemical and chromogenic in-situ hybridization tests have been determined by [facility]. These tests are used for clinical purposes, They should not be regarded as investigational or for research. Normal [facility] ([place]) Office Visit: Right thigh wilson bcutaneous neoplasmon 12-10-2016 Fall risk assessment No [facility] Work Phone: Protein mass conc Done [facility] Work Phone: Tobacco smoking status NHIS Never [facility] Work Phone: Tobacco smoking status NHIS Never smoker [facility] Work Phone: Vital Signs Date Time Vital Sign Value Performing Clinician Facility 12-10-2016 14:36-0400 BMI (Body Mass Index) 22.56 kg/m2 Iveth West MD [facility] Work Phone: 12-10-2016 14:36-0400 Body Temperature 98.1 [degF] Iveth West MD [facility] Work Phone: 12-10-2016 14:36-0400 BP Diastolic 85 mm[Hg] Iveth West MD [facility] Work Phone: 12-10-2016 14:36-0400 BP Systolic 138 mm[Hg] Iveth West MD [facility] Work Phone: 12-10-2016 14:36-0400 Height 154.94 cm Iveth West MD [facility] Work Phone: 12-10-2016 14:36-0400 Pulse (Heart Rate) 75 /min Iveth West MD [facility] Work Phone: 12-10-2016 14:36-0400 Pulse Oximetry 97 % Iveth West MD [facility] Work Phone: 12-10-2016 14:36-0400 Respiratory Rate 20 /min Iveth West MD [facility] Work Phone: 12-10-2016 14:36-0400 Weight 54.16 kg Iveth West MD [facility] Work Phone: Plan of Treatment Date Care Activity Detail Author Start: 12-10-2016 End: 12-11-2016 Follow-up visit Follow Up as needed [facility] Work Phone: Start: 12-10-2016 End: 12-11-2016 Office outpatient new 30 minutes [id number] Vst-New Level III [facility] Work Phone: Summary Purpose Family [...] BE BASED ON THE PRIMARY CLINICAL RECORDS. [facility] [employer] [facility]. provides no warranty or guarantee of the accuracy or completeness of information in this document.
[2025-03-07] MEDS: 0.9% Saline Lock 10 ML Syringe IV ×2 (18:11→21:21)
[2025-03-07 21:09] LABS: Troponin T High Sens 4 HR < 6 ng/L (<=14)
[2025-03-08 03:31] VITALS: BP 149/91; PULSE 79; RESP 16; TEMP 36.6; O2SAT 99
[2025-03-08 05:39] LABS: Hematocrit 40.6 % (37-47); Hemoglobin 13.2 g/dL (12.0-15.0); Mean Corp Hgb Conc 32.5 g/dL (32-36); Mean Corpuscular Volume 93.5 fL (81-99); Mean Platelet Vol. 9.1 fl (6.2-12.0); Platelet Count 396 K/mm3 (150-450); RBC Distribution Width CV 14.0 % (11.6-14.6); RBC Distribution Width SD 47.8 fl (35.1-43.9); Red Blood Count 4.34 M/mm3 (4.2-5.4); White Blood Count 8.3 K/mm3 (4.4-11.0)
[2025-03-08 06:07] LABS: Anion Gap 10 (5-15); BUN 9 mg/dL (4-19); BUN/Creat Ratio 12.9 RATIO (10-20); Calcium,Total 10.0 mg/dL (7.6-11.0); Carbon Dioxide 25.1 mmol/L (21.0-32.0); Chloride 101 mmol/L (98-108); Estimated Creatinine Clearance 61.27 ml/min (50-250); Glucose 99 mg/dL (70-99); Potassium 4.5 mmol/L (3.3-5.1)
[2025-03-08 09:30] VITALS: BP 165/87; PULSE 79; RESP 18; TEMP 36.4; O2SAT 99
--- NOTE | 2025-03-08 13:18 | CASEMGMT ---
Addendum entered by Taryn Basurto 03/08/25 14:05: ENT is at the bedside now seeing the pt and pt's Original Note: PT/OT states to this RN CM that the pt did well with PT and that the pt's would like to talk with DC planning team. RN CM to the pt's room at this time. Pt's at bedside. Pt inquires when the ENT doctor will be seeing the pt. Notified the and pt that Dr Hebert recently requested the ENT consult and that it is currently pending. CM to follow. Moving forward, pt states that she feels safe returning home once medically ready. Pt's is requesting testing results from the pt's RN. This RN CM notified the pt's RN who plans to follow up. No further needs identified at this time. Awaiting ENT consult. CM to follow.
--- NOTE | 2025-03-08 13:18 | PN_ITS ---
Subjective Subjective Patient seen and examined. As noted by her bedside. Still complains of decreased hearing in the right ear as well as dizziness and lightheadedness especially when she moves her head. Says she tried to up to the bathroom and felt unsteady on her feet. She as remained hemodynamically stable. Objective Data Objective Data Vital Signs: Vital Signs Temp Pulse Resp BP Pulse Ox O2 Del Method 97.6 F L 79 18 165/87 H 99 Room Air 03/08/25 09:30 03/08/25 09:30 03/08/25 09:30 03/08/25 09:30 03/08/25 09:30 03/08/25 09:30 Oxygen Delivery Method Room Air Weight: 109 lb 5.588 oz Body Mass Index (BMI) 20.6 Intake & Output: Intake and Output for Last 24 Hours 03/06/25 03/07/25 03/08/25 23:59 23:59 23:59 Intake Total 120 / 360 480 / 480 Balance 120 / 360 480 / 480 Lab / Micro Data 03/08/25 04:41 03/08/25 04:41 Labs: Laboratory Results - last 24 hr 03/07/25 13:42: WBC 9.0, RBC 4.44, Hgb 13.6, Hct 42.1, MCV 94.8, MCH 30.6, MCHC 32.3, RDW Std Deviation 48.9 H, RDW Coeff of Delfin 14.0, Plt Count 392, MPV 8.8, Immature Gran % (Auto) 0.400, Neut % (Auto) 63.5, Lymph % (Auto) 20.0, [place] % (Auto) 10.7 H, Eos % (Auto) 4.4, Baso % (Auto) 1.0, Absolute Neuts (auto) 5.7, Absolute Lymphs (auto) 1.81, Nucleated RBC % 0, PT 13.0, INR 1.0, APTT 27.4, Sodium 140, Potassium 3.8, Chloride 103, Carbon Dioxide 25.1, Anion Gap 12, BUN 9, Creatinine 0.87, Estim Creat Clear Calc 49.30 L, Est GFR (MDRD) Non-Af 75, BUN/Creatinine Ratio 10.0, Glucose 101 H, Calcium 9.6, Troponin T High Sens < 6 03/07/25 13:51: ESR 15, C-React Prot Ext Range < 3.00 03/07/25 15:42: Troponin T Hi Sens 2 Hr < 6 03/07/25 20:10: Troponin T Hi Sens 4Hr < 6 03/08/25 04:41: WBC 8.3, RBC 4.34, Hgb 13.2, Hct 40.6, MCV 93.5, MCH 30.4, MCHC 32.5, RDW Std Deviation 47.8 H, RDW Coeff of Delfin 14.0, Plt Count 396, MPV 9.1, Sodium 136, Potassium 4.5, Chloride 101, Carbon Dioxide 25.1, Anion Gap 10, BUN 9, Creatinine 0.70, Estim Creat Clear Calc 61.27, Est GFR (MDRD) Non-Af 96, BUN/Creatinine Ratio 12.9, Glucose 99, Calcium 10.0 Radiography Diagnostic Testing: Radiology Impression Brain CT 03/07/25 13:46 IMPRESSION: Negative for acute intracranial pathology. Maxillary sinusitis. Report called to referring clinician at the time of the exam. Reading Location: [id number] Chest X-Ray 03/07/25 13:46 IMPRESSION: No Acute Findings. 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 No aneurysm or vascular malformation Patent vertebral arteries Reading Location: [id number] Echocardiogram 03/07/25 15:07 Interpretation Summary The left ventricular ejection fraction is 65 %. Moderate (2+) tricuspid valve insufficiency. Ordering Physician: Thierno Smith Referring Physician: Felicia Kapper Performed By: Ciera Nieto RCS Physical Exam Const alert, oriented x3 and no apparent distress General Appearance: cooperative and well developed HEENT normocephalic, head/scalp atraumatic and moist oral mucous membranes HEENT Narrative: both ear dums pink and visible on inspection with otoscope, mild wax in ear canals bilaterally Eyes EOMs intact bilaterally Neck no lymphadenopathy and supple Lymph Lymphatic: no lymphedema noted Resp normal respiratory effort, normal air movement and clear to auscultation bilaterally Cardio regular rate, regular rhythm, S1 normal heart sound and S2 normal heart sound GI normal to inspection, nondistended, normoactive bowel sounds and soft to palpation Extremity normal capillary refill, no clubbing, cyanosis or edema and no calf tenderness General Extremity: no tenderness to palpation of joints or extremities Skin General Skin Exam: no breakdown Neuro CN's II-XII intact bilaterally and no focal motor deficits Motor Exam: general weakness Psych thought process normal and cooperative Appearance: appropriate Assessment & Plan Assessment/Plan (1) Dizziness: (2) Tinnitus: (3) Pre-syncope: PLAN: Plan # Right sided hearing loss with dizziness and unsteady gait\ * Patient also has tinnitus. PT OT on board. * CT of the brain showed no acute intracranial pathology and CT of the head and neck were negative. [facility] teleneurology reviewed. And deferred MRI due to low risk of stroke. * Patient reports a previous history of left-sided hearing loss with tinnitus. She says she recently had a rash for which she was treated with steroids. She completed the steroid treatment about 2 weeks ago. * ENT consulted per patient request. PT OT consulted for vestibular therapy start on meclizine. Await ENT evaluation. * 2D echo showed EF of 65% and moderate 2+ tricuspid valve insufficiency. #Elevated blood pressure * Patient not a known hypertensive. Blood pressure was elevated so started on p.o. hydrochlorothiazide 25 mg daily. * IV hydralazine as needed. * #Anxiety and depression: On paroxetine and alprazolam nightly DVT prophylaxis: Lovenox Charges/Coding Visit Charges Inpatient E&M: 32669 Subs Hosp L2
--- NOTE | 2025-03-08 14:24 | PN_ITS ---
Progress Note Asked to see the patient at the request of Dr. Hebert for decreased hearing and dizziness HPI: 65-year-old white female had the sudden onset of decreased hearing and ringing in the right ear yesterday morning as well as the acute onset of feeling off balance. She denies any vertigo. Her reports that she could barely walk. She denies any loss of consciousness at any time. Some years ago she had a sudden onset of hearing loss in the left ear. Up until yesterday her left ear was the worse hearing ear, however, at this time her right ear is much worse than the left ear. She had a flulike illness approximately 2 weeks ago that consisted of nasal congestion and headaches. She states that she is basically over that. She was also treated with Kenalog for a rash approximately 2 weeks ago as well. [facility] Medical History Fatty tumor Home Medications ?Medication ?Instructions ?Recorded ?Last Taken ?Type alprazolam 0.5 mg tablet 0.25 mg PO QHS PRN sleep 03/07/25 Unknow n History ascorbic acid (vitamin C) 1,000 mg 1 g PO DAILY 03/07/25 Unknown History tablet (C-1000) bisacodyl 5 mg tablet,delayed 5 mg PO PRN CONSTIPATION 03/07/25 Unknow n History release (Dulcolax (bisacodyl)) capsicum (cayenne) 450 mg capsule 450 mg PO DAILY 03/07/25 Unknown History coenzyme Q10 100 mg capsule (Co 100 mg PO DAILY 03/07/25 Unknown History Q-10) fluoxetine 20 mg capsule 20 mg PO QODAY 03/07/25 03/07/25 History hawthorn 500 mg capsule (hawthorn 500 mg PO DAILY 03/07/25 Unknown History rasheed) Allergy/AdvReac Type Severity Reaction Status Date / Time No Known Allergies Allergy Verified 03/07/25 13:42 Social History Smoking Status: Never smoker ROS Constitutional Constitutional: Denies chills, fatigue, fever(s) or weakness Eyes Eyes: Denies change in vision ENT HEENT: Reports abnormal hearing, headache(s) and hearing loss; Denies ear pain, nasal congestion, nasal discharge, sinus pressure or sore throat Cardiovascular Cardiovascular: Denies chest pain or dyspnea on exertion Respiratory/Chest Respiratory/Chest: Denies cough, productive cough, shortness of breath at rest or wheezing Gastrointestinal Gastrointestinal: Denies abdominal pain Genitourinary Genitourinary: Denies dysuria Musculoskeletal Musculoskeletal: Denies arthralgias or myalgias Neurologic Neurologic: Reports disequilibrium, dizziness and headache(s); Denies focal weakness, numbness or tingling Physical exam: The patient is awake alert in no acute distress. She has no nystagmus and is sitting upright in bed. Scalp and skull are normal Tympanic membrane external auditory canals are within normal limits bilaterally. Nasal exam shows no purulence. Mouth and oropharynx reveals no purulence masses ulceration Neck is supple no adenopathy CT scan of the head: No fluid in either mastoid cavity. She has air-fluid levels in both maxillary sinuses. Assessment: Sudden sensorineural hearing loss right ear (Differential includes, virus, Meniere's, Acoustic Neuroma Acute bilateral maxillary sinusitis Plan: I recommend starting the patient on prednisone, specifically, 50 mg daily for 5 days and then weaning thereafter. I have recommended an MRI of the brain to evaluate for an acoustic neuroma. She will need follow-up in the next 2 to 3 weeks in our office for a formal audiogram. She should see physical therapy to determine if outpatient therapy would be warranted. She should be started on an antibiotic for her maxillary sinusitis.
--- NOTE | 2025-03-08 15:15 | MRI_ITS ---
PROCEDURE: BRAIN W/WO CONTRAST 03/08/2025 REASON FOR EXAM: SUDDEN SENSORINEURAL HEARING LOSS ON RIGHT TECHNIQUE: Procedure Code: [id number] Modality: MR Procedure: BRAIN W/WO CONTRAST Multiplanar and multisequence images were obtained. CONTRAST: Clariscan VOLUME: 10 mL mL COMPARISON: CT head March 07, 2025. FINDINGS: Brain: Scattered foci of hyperintense signal on T2 and FLAIR which are nonspecific. No restricted diffusion. No hemorrhage. No mass-effect or midline shift. Empty sella. The orbits are unremarkable except for questionable prominence of the optic nerve meninges. Cerebellopontine angles: No abnormal enhancement or mass lesions. The 7th and 8th cisternal cranial nerves are unremarkable. The inner ears and internal acoustic canals are within normal limits. Diffusion: None. Ventricles: No ventriculomegaly. Major Intracranial Vessels: Patent. Sinuses: Air-fluid levels in the maxillary sinuses. Mastoids: Clear. MRI/Brain W/WO Contrast IMPRESSION: Nonspecific hyperintense foci on T2 and FLAIR in the white matter of the brain. Empty sella. Please correlate with idiopathic intracranial hypertension. Unremarkable MRI of the cerebellopontine angles without enhancing lesion or abn ormal enhancement. Reading Location: [id number]
[2025-03-08 15:30] VITALS: BP 141/99; PULSE 88; RESP 18; TEMP 36.6; O2SAT 97; BMI 20.6
[2025-03-08 21:20] VITALS: BP 141/92; PULSE 89; RESP 16; TEMP 36.5; O2SAT 97
[2025-03-08] MEDS: 0.9% Saline Lock 10 ML Syringe IV (21:23)
[2025-03-09 03:16] VITALS: BP 146/94; PULSE 85; RESP 16; TEMP 36.3; O2SAT 98
[2025-03-09 07:11] LABS: Hematocrit 43.8 % (37-47); Hemoglobin 14.7 g/dL (12.0-15.0); Immature Granulocytes Count 0.050 X10^3/uL (0.0-0.0); Mean Corp Hgb Conc 33.6 g/dL (32-36); Mean Corpuscular Volume 91.3 fL (81-99); Mean Platelet Vol. 9.3 fl (6.2-12.0); NRBC Flagged by Analyzer 0 % (0-5); Platelet Count 452 K/mm3 (150-450); RBC Distribution Width CV 13.8 % (11.6-14.6); RBC Distribution Width SD 46.8 fl (35.1-43.9); Red Blood Count 4.80 M/mm3 (4.2-5.4); White Blood Count 10.3 K/mm3 (4.4-11.0)
[2025-03-09 07:36] VITALS: BP 141/95; PULSE 98; RESP 16; TEMP 36.2; O2SAT 97
[2025-03-09 07:39] LABS: Anion Gap 14 (5-15); BUN 13 mg/dL (4-19); BUN/Creat Ratio 19.4 RATIO (10-20); Calcium,Total 10.2 mg/dL (7.6-11.0); Carbon Dioxide 24.5 mmol/L (21.0-32.0); Chloride 97 mmol/L (98-108); Estimated Creatinine Clearance 64.01 ml/min (50-250); Glucose 115 mg/dL (70-99); Potassium 4.3 mmol/L (3.3-5.1)
[2025-03-09 07:46] VITALS: PULSE 100
[2025-03-09 12:41] VITALS: BP 157/92; PULSE 95; RESP 18; TEMP 36.8; O2SAT 100
--- NOTE | 2025-03-09 13:16 | DS.PCM_ITS ---
Providers Date of Admission: 03/07/25 Date of Discharge: 03/09/25 Primary Care Physician: Felicia Tran, [facility] Consultations 03/08/25 11:44 Consult: ENT Routine Consulting Provider: Jaylen Rosado Reason for Consult: impaired hearing in right ear, dizziness and loss of balance EMERGENT Consult: No MD Notified: Yes Date Notified: 03/08/25 Time Notified: 11:44 Method of Notification: Text Reason For Visit: PRESYNCOPAL SYMPTOMS Diagnosis Discharge Diagnosis (1) Dizziness: Status: Acute Code(s): R42 - Dizziness and giddiness (2) Tinnitus: Status: Acute Code(s): H93.19 - Tinnitus, unspecified ear (3) Pre-syncope: Status: Acute Code(s): R55 - Syncope and collapse Plan # Right sided hearing loss with dizziness and unsteady gait\ * Patient also has tinnitus. PT OT on board. * CT of the brain showed no acute intracranial pathology and CT of the head and neck were negative. [facility] teleneurology reviewed. And deferred MRI due to low risk of stroke. * Patient reports a previous history of left-sided hearing loss with tinnitus. She says she recently had a rash for which she was treated with steroids. She completed the steroid treatment about 2 weeks ago. * ENT consulted per patient request. PT OT consulted for vestibular therapy start on meclizine. Await ENT evaluation. * 2D echo showed EF of 65% and moderate 2+ tricuspid valve insufficiency. #Elevated blood pressure * Patient not a known hypertensive. Blood pressure was elevated so started on p.o. hydrochlorothiazide 25 mg daily. * IV hydralazine as needed. * #Anxiety and depression: On paroxetine and alprazolam nightly DVT prophylaxis: Lovenox Medications at Discharge Home Medications alprazolam 0.5 mg tablet 0.25 mg PO QHS PRN sleep 03/07/25 ascorbic acid (vitamin C) 1,000 mg tablet (C-1000) 1 g PO DAILY 03/07/25 bisacodyl 5 mg tablet,delayed release (Dulcolax (bisacodyl)) 5 mg PO PRN CONSTIPATION 03/07/25 capsicum (cayenne) 450 mg capsule 450 mg PO DAILY 03/07/25 coenzyme Q10 100 mg capsule (Co Q-10) 100 mg PO DAILY 03/07/25 fluoxetine 20 mg capsule 20 mg PO QODAY 03/07/25 hawthorn 500 mg capsule (heidy rasheed) 500 mg PO DAILY 03/07/25 amlodipine 10 mg tablet 10 mg PO DAILY #30 tabs 03/09/25 amoxicillin 875 mg-potassium clavulanate 125 mg tablet 1 tab PO BID #8 tabs 03/09/25 hydrochlorothiazide 25 mg tablet 25 mg PO DAILY #30 tabs 03/09/25 meclizine 25 mg tablet 25 mg PO TID PRN dizziness #90 tabs 03/09/25 prednisone 10 mg tablet 50 mg (5 x 10 mg) PO BREAKFAST 4 days #20 tabs 03/09/25 prednisone 10 mg tablets in a dose pack See Taper PO UD #48 tabs 03/09/25 Hospital Course Operations None Procedures 2-D Echocardiogram Summary of Care Provided Minutes Spent on Discharge: 47 Hospital Course: Patient is a 65-year-old female with past medical history as outlined was admitted to the ED on 03/07/2025 with complaint of dizziness, tinnitus and difficulty with ambulation. She was in her normal state of health until the day before admission when she had a right-sided headache with tinnitus and some dizziness. She had difficulty maintaining her balance when she tried to walk. She says she went to scientology and was there she also continued to feel off balance. She has some difficulty hearing out of the right ear so she came to the ED. In the ED blood pressure was noted to be elevated with a systolic in the 150s and 160s. CT of the brain and CT of the head and neck were unremarkable. [facility] neurology reviewed and did not think it was a stroke as her NIH stroke scale was 0 so MRI was deferred. She was admitted to be managed for dizziness and tinnitus with concerns for M?ni?re's disease. She had 2D echo which showed EF of 65% and moderate tricuspid valve insufficiency. ENT was consulted and felt that her symptoms were likely due to the sudden sensorineural hearing loss with the differentials being a viral infection, M?ni?re's disease or acoustic neuroma. Of note she also had acute bilateral maxillary sinusitis based on the CT. MRI of the brain with contrast was done per ENT to rule out an acoustic neuroma and this was negative for an acoustic neuroma. She was started on p.o. prednisone 50 mg daily for 5 days and then to be weaned after. Patient did remain stable and was discharged home on 03/10/2025. She still did feel a bit dizzy but says she felt well enough to go home and felt some rest were to have some good. She was therefore discharged on 03/09/2025 on a p.o. prednisone 50 mg daily for a total of 5 days and then to be tapered down. She is to follow-up with her primary care doctor and follow-up with ENT within 1 to 2 weeks. Of note she was also discharged on a course of Augmentin. Her blood pressure was noted to be elevated during admission so she was discharged with a prescription for p.o. amlodipine and hydrochlorothiazide. She is follow-up with her PCP for adjustment of BP meds as needed. Patient seen and examined prior to discharge. She had no active complaints and had an uneventful night. Review of systems otherwise negative. Labs and vitals reviewed. Home medication reviewed and reconciled. Physical Exam Const alert, oriented x3, no apparent distress and average body habitus General Appearance: cooperative and comfortable HEENT normocephalic, head/scalp atraumatic, hearing grossly normal bilaterally, nasal mucous membranes and turbinates normal and moist oral mucous membranes Mouth: oral and palatal mucosa normal Eyes PERRL, EOMs intact bilaterally and conjunctivae normal Neck full ROM, no lymphadenopathy and supple Lymph Lymphatic: no lymphedema noted Chest inspection of chest normal Resp normal respiratory effort, normal air movement, no use of accessory muscles and clear to auscultation bilaterally Cardio regular rate, regular rhythm, S1 normal heart sound, S2 normal heart sound, no murmurs and peripheral pulses 2+ throughout GI normal to inspection, nondistended, normoactive bowel sounds, soft to palpation, non-tender and non-distended Back/Spine normal ROM Extremity normal to inspection, full ROM, normal capillary refill, no clubbing, cyanosis or edema, no calf tenderness and no pedal edema General Extremity: no tenderness to palpation of joints or extremities Skin no rashes or lesions noted General Skin Exam: no breakdown Neuro oriented x3, CN's II-XII intact bilaterally, moves all extremities and no focal motor deficits Coordination / Balance: [id number]-[id number] test normal Speech: speech normal Motor Exam: strength 5/5 throughout and general weakness Psych mental status grossly normal, thought process normal and cooperative Appearance: appropriate Weight / BMI Weight Weight: 109 lb 5.588 oz Body Mass Index (BMI) 20.6 ABG / Lab / Microbiology Data 03/09/25 05:59 03/09/25 05:59 Laboratory: Laboratory Results - last 24 hr 03/09/25 05:59: WBC 10.3, RBC 4.80, Hgb 14.7, Hct 43.8, MCV 91.3, MCH 30.6, MCHC 33.6, RDW Std Deviation 46.8 H, RDW Coeff of Delfin 13.8, Plt Count 452 H, MPV 9.3, Immature Gran % (Auto) 0.500, Neut % (Auto) 80.6 H, Lymph % (Auto) 11.1 L, Adams % (Auto) 7.4, Eos % (Auto) 0.1, Baso % (Auto) 0.3, Absolute Neuts (auto) 8.3 H, Absolute Lymphs (auto) 1.14, Nucleated RBC % 0, Sodium 135, Potassium 4.3, C hloride 97 L, Carbon Dioxide 24.5, Anion Gap 14, BUN 13, Creatinine 0.67 L, Estim Creat Clear Calc 64.01, Est GFR (MDRD) Non-Af 98, BUN/Creatinine Ratio 19.4, Glucose 115 H, Calcium 10.2 Radiography Diagnostic Testing: Radiology Impression Brain MRI 03/08/25 15:15 IMPRESSION: Nonspecific hyperintense foci on T2 and FLAIR in the white matter of the brain. Empty sella. Please correlate with idiopathic intracranial hypertension. Unremarkable MRI of the cerebellopontine angles without enhancing lesion or abnormal enhancement. Reading Location: [facility] D/C Instructions Discharge Activity: Return to Normal Activity Weight Bearing Status: Weight bearing as tolerated Call your doctor if you observe: Fever of 101 or Higher, Shortness of breath, Dizziness, Swelling in the ankles and Increased palpitations (irregular heartbeat) DC O2, CPAP, BIPAP Needs Home O2 Discharge instructions: No DC home with Oxygen: No Meaningful Use Info Meaningful Use Meaningful Use Diagnoses (Choose all that apply): None applicable Discharge Plan Admission Admit Date/Time: 03/07/25 15:04 Primary Reason for Your Visit: right sensorineural hearing loss Attending Provider: Kacie Hebert Primary Care Provider: Felicia Tran NP Consulting Providers: Thierno Smith; Jaylen Rosado Instructions Patient Instructions: Meniere Disease Meds Discharge Orders/Prescriptions Prescriptions: New prednisone 10 mg Tablet 50 mg PO BREAKFAST 4 Days Qty: 20 0RF hydrochlorothiazide 25 mg Tablet 25 mg PO DAILY Qty: 30 2RF amoxicillin-pot clavulanate 875-125 mg Tablet 1 tab PO BID Qty: 8 0RF prednisone 10 mg tablets,dose pack See Taper PO UD Qty: 48 0RF Taper: Prednisone Taper 40 mg WITH BREAKFAST for 3 Days and 0 Hour 30 mg WITH BREAKFAST for 3 Days and 0 Hour 20 mg WITH BREAKFAST for 3 Days and 0 Hour 10 mg WITH BREAKFAST for 3 Days and 0 Hour Rx Instructions: 10 mg orally amlodipine 10 mg tablet 10 mg PO DAILY Qty: 30 2RF meclizine 25 mg tablet 25 mg PO TID PRN (Reason: dizziness) Qty: 90 1RF Continued alprazolam 0.5 mg tablet 0.25 mg PO QHS PRN (Reason: sleep) fluoxetine 20 mg capsule 20 mg PO QODAY capsicum (cayenne) 450 mg capsule 450 mg PO DAILY hawthorn rasheed 500 mg capsule 500 mg PO DAILY coenzyme Q10 [Co Q-10] 100 mg capsule 100 mg PO DAILY ascorbic acid (vitamin C) [C-1000] 1,000 mg tablet 1 g PO DAILY bisacodyl [Dulcolax (bisacodyl)] 5 mg tablet,delayed release (DR/EC) 5 mg PO PRN Other Ambulatory Orders: 30 Day Event Recorder Preventi (Urgent) Timeframe: 1 Day Facility: [facility] - Location: Cardiovascular Services Ordered By: Dr. Kacie Hebert Referrals / Follow Up: Jaylen Rosado MD [Med Staff - Active Staff, Ear Nose Throat (ENT)] - Within 1 Week Felicia Tran NP, [employer] [Primary Care Provider, Medical] - Within 1 Week Disposition Disposition (needs filled in before D/C Order can be placed): Home, Self Care Charges/Coding Visit Charges Inpatient E&M: 96821 Disch Hosp >30min
--- NOTE | 2025-03-09 13:27 | CASEMGMT ---
Dr Hebert reports that the pt will be going home with a cardiac event monitor due to the pt c/o hx of palpitations. Pt has an order for DC placed. CHANEL CM to the pt's room at this time. Pt at bedside. Pt and pt are aware that the conveyor monitor will be shipped to the home. Pt reports that she is aware to follow up with ENT as an OP and prefers to schedule the appt herself. Pt states that they have a ride home today and deny any further questions, concerns, or needs.
== END 2025-03-09 14:44 | disposition home or self-care (01) ==
LOC: ED 15:21 → PCU 16:38
PROVIDERS: Admitting Provider Hospitalist; Emergency Provider Emergency Medicine; PCP Nurse Practitioner Family; Visit Provider Student in an Organized Health Care Education/Training Program
DX: R55 Syncope and collapse (principal); R42 Dizziness and giddiness; I07.1 Rheumatic tricuspid insufficiency; R53.1 Weakness; J01.00 Acute maxillary sinusitis, unspecified; H90.41 Sensorineural hearing loss, unilateral, right ear, with unrestricted hearing on the contralateral side; H93.19 Tinnitus, unspecified ear; Z79.899 Other long term (current) drug therapy; R03.0 Elevated blood-pressure reading, without diagnosis of hypertension; F41.9 Anxiety disorder, unspecified; F32.A Depression, unspecified; G47.00 Insomnia, unspecified
CPT/HCPCS: 36415; 70450; 70496; 70498; 70553; 71045; 80048; 84484; 85025; 85027; 85610; 85652; 85730; 86140; 93005; 93306; 94668; 96372; 96374; 96376; 99221; 99285; A9575; Q9967; A4216; G0378; J2405